=== PATIENT | female | born 1960 | race African-American/Black ===

== ENCOUNTER 2020-12-10 07:33 | Observation (INO) | payer MEDICARE, OTHER ==
[2020-12-09 10:29] LABS: BASOPHILS % (AUTO) 0.7 % (0.0-2.0); EOSINOPHILS % (AUTO) 0.9 % (1.0-6.0); HEMATOCRIT 39.3 % (36-46); HEMOGLOBIN 12.7 g/dL (12.0-16.0); LYMPHOCYTES # (AUTO) 3.2 K/uL (1.0-4.8); MEAN CORPUSCULAR HEMOGLOBIN 25.3 pg (26.0-34.0); MEAN CORPUSCULAR HGB CONC 32.2 G/dL (31.0-37.0); MEAN CORPUSCULAR VOLUME 78 fL (80-100); MONOCYTES # (AUTO) 1.3 K/uL (0.1-1.0); MONOCYTES % (AUTO) 9.5 % (2.0-9.0); NEUTROPHILS # (AUTO) 8.6 K/uL (1.8-7.7); NEUTROPHILS % (AUTO) 64.9 % (40.0-70.0); PLATELET COUNT (AUTO) 387 K/uL (150-450); RED BLOOD CELL COUNT(AUTO) 5.02 MIL/uL (4.00-5.20); RED CELL DISTRIBUTION WIDTH 14.8 % (11.5-14.5)
[2020-12-09 10:30] LABS: COVID AG,FIA SOURCE NASOPHARYNGEAL
[2020-12-09 10:38] LABS: CALCIUM, TOTAL 8.7 mg/dL (8.8-10.5); CREATININE 1.24 mg/dL (0.60-1.30); POTASSIUM 3.9 mmol/L (3.5-5.1)
[2020-12-09 10:42] LABS: PROTHROMBIN TIME 10.4 SEC (9.4-11.6)
[2020-12-09 10:44] LABS: ALBUMIN 3.7 g/dL (3.4-5.0); BILIRUBIN,TOTAL 0.3 mg/dL (0.1-1.0); TOTAL PROTEIN, SERUM 7.6 g/dL (6.4-8.2)
[~2020-12-10] VITALS: Ht 168.9 cm; Wt 135.0 kg
[2020-12-10] VITALS (11 sets, daily range): BP systolic 120–197; BP diastolic 47–95
[~2020-12-10 07:33] MED LIST: ALBU8.5H8 IH; ALBU8HFA IH; ARIP10TA38 PO; ASCO500 PO; ASPI-1450 PO; BACL10TA PO; BETA1TAB15 PO; BIOT5000 PO; CHOL100044 PO; DIPH-1080 PO; FAMO20 PO; GABA-1181 PO; GARL500C2 PO; HYDR50CA9 PO; INSLAN SQ; INSU100V SQ; LIDO1ADH72 TD; LORA10TA7 PO; LOSA-30 PO; METF-960 PO; MULT-1203 PO; NALO25TA4 PO; OMEG-135 PO; OMEP20 PO; OXYC-601 PO; RISP1TAB48 PO; ROSU10TA72 PO; TAPE50TA2 PO; VITA400C73 PO; [UNRECOGNIZED DRUG - OTHER] PO
[2020-12-10] MEDS ORDERED: SODIUM CHLORIDE 0.9% 1,000 ML ONE (07:43)
[2020-12-10] MEDS ORDERED: SODIUM CHLORIDE 0.9% 1,000 ML IV ONE ×2 (08:00→14:00)
[2020-12-10] MEDS ORDERED: SODIUM BICARBONATE 50 MEQ/50 ML VIAL ONE (08:33)
[2020-12-10] MEDS ORDERED: IOHEXOL 300 MG/ML 150 ML VIAL ONE (08:33)
[2020-12-10] MEDS ORDERED: IOHEXOL 300 MG/ML 100 ML VIAL ONE ×2 (08:33→12:05)
[2020-12-10] MEDS ORDERED: LIDOCAINE/PF 1% 30 ML VIAL ONE (08:33)
[2020-12-10] MEDS ORDERED: IOHEXOL 300 MG/ML 50 ML VIAL ONE ×2 (08:33→11:42)
[2020-12-10] MEDS ORDERED: HEPARIN SODIUM 1000 UNITS/NS 1,000 ML ONE (08:34)
[2020-12-10 08:46] LABS: GLUCOMETER DEV NAME(LOC) SDS.; GLUCOSE,POINT OF CARE 142 MG/DL (70-110)
[2020-12-10] MEDS ORDERED: AMLO-257 PO (09:23)
[2020-12-10] MEDS ORDERED: VERAPAMIL HCL 2.5 MG/ML 2 ML VIAL ONE (09:27)
[2020-12-10] MEDS ORDERED: NITROGLYCERIN 50 MG/D5% WATER 250 ML ONE (09:27)
[2020-12-10] MEDS ORDERED: MIDAZOLAM HCL 2 MG/2 ML VIAL ONE ×6 (10:08→12:05)
[2020-12-10] MEDS ORDERED: FentaNYL CITRATE PF 100 MCG/2 ML VIAL ONE ×3 (10:08→11:48)
[2020-12-10] MEDS ORDERED: HEPARIN SODIUM 1000 UNITS/NS 1,000 ML IARTER ONE (11:15)
[2020-12-10] MEDS ORDERED: MIDAZOLAM HCL 2 MG/2 ML VIAL IVP ONE ×5 (11:15→11:45)
[2020-12-10] MEDS ORDERED: IOHEXOL 300 MG/ML 150 ML VIAL IARTER ONE (11:15)
[2020-12-10] MEDS ORDERED: LIDOCAINE 1% 30 ML/SOD BICARB 8.4% 4 ML SQ ONE (11:15)
[2020-12-10] MEDS ORDERED: FentaNYL CITRATE PF 100 MCG/2 ML VIAL IVP ONE ×5 (11:15→11:45)
[2020-12-10] MEDS ORDERED: IOHEXOL 300 MG/ML 100 ML VIAL IARTER ONE (11:45)
[2020-12-10] MEDS ORDERED: ADENOSINE 3 MG/ML 2 ML VIAL ONE (12:03)
[2020-12-10] MEDS ORDERED: ASPIRIN 325 MG TABLET ONE (12:28)
[2020-12-10] MEDS ORDERED: CLOPIDOGREL BISULFATE 300 MG TABLET ONE (12:28)
[2020-12-10] MEDS ORDERED: CLOPIDOGREL BISULFATE 300 MG TABLET PO ONE (13:00)
[2020-12-10] MEDS ORDERED: ASPIRIN 325 MG TABLET PO ONE (13:00)
[2020-12-10] MEDS ORDERED: ACETAMINOPHEN 325 MG TABLET PO PRN (14:00)
[2020-12-10] MEDS: OxyCODONE HCL/ACETAMINOPHEN 5-325 MG TABLET PO PRN (15:56)
[2020-12-10] MEDS ORDERED: BACLOFEN 10 MG TABLET PO PRN (18:00)
[2020-12-10] MEDS ORDERED: DiphenhydrAMINE HCL 25 MG CAPSULE PO PRN (18:00)
[2020-12-10] MEDS: AmLODIPine BESYLATE 5 MG TABLET PO SCH (18:12)
[2020-12-10] MEDS: LOSARTAN POTASSIUM 50 MG TABLET PO SCH (18:12)
[2020-12-10] MEDS: INSULIN LISPRO 100 UNITS/ML SQ PRN (18:13)
[2020-12-10] MEDS ORDERED: DEXTROSE 50%-WATER 25 GM/50 ML SYRINGE IVP PRN (18:15)
[2020-12-10] MEDS: HYDROmorphone 2 MG/ML VIAL IVP PRN (18:26)
[2020-12-10 18:27] LABS: GLUCOSE,POINT OF CARE 164 MG/DL (70-110)
[2020-12-10] MEDS: HYDROCHLOROTHIAZIDE 25 MG TABLET PO SCH (20:39)
[2020-12-10] MEDS: RisperiDONE 1 MG TABLET PO SCH (20:40)
[2020-12-10] MEDS: HydrOXYzine PAMOATE 50 MG CAPSULE PO SCH (20:40)
[2020-12-10] MEDS: ASCORBIC ACID 500 MG TABLET PO SCH (20:40)
[2020-12-10] MEDS ORDERED: ROSUVASTATIN CALCIUM 10 MG TABLET PO SCH (21:00)
[2020-12-10] MEDS ORDERED: FAMOTIDINE 20 MG TABLET PO SCH (21:00)
[2020-12-10] MEDS ORDERED: ARIPiprazole 10 MG TABLET PO SCH (21:00)
[2020-12-11] VITALS: BP 121/59
[2020-12-11] MEDS: HYDROmorphone 2 MG/ML VIAL IVP PRN (00:36)
[2020-12-11 04:00] VITALS: BP 131/71
[2020-12-11 05:27] LABS: BASOPHILS % (AUTO) 0.4 % (0.0-2.0); HEMATOCRIT 36.4 % (36-46); HEMOGLOBIN 11.6 g/dL (12.0-16.0); LYMPHOCYTES # (AUTO) 3.1 K/uL (1.0-4.8); LYMPHOCYTES % (AUTO) 22.4 % (22.0-44.0); MEAN CORPUSCULAR HEMOGLOBIN 25.3 pg (26.0-34.0); MEAN CORPUSCULAR VOLUME 79 fL (80-100); MONOCYTES # (AUTO) 1.2 K/uL (0.1-1.0); MONOCYTES % (AUTO) 8.6 % (2.0-9.0); NEUTROPHILS # (AUTO) 9.1 K/uL (1.8-7.7); NEUTROPHILS % (AUTO) 66.6 % (40.0-70.0); PLATELET COUNT (AUTO) 344 K/uL (150-450); RED BLOOD CELL COUNT(AUTO) 4.61 MIL/uL (4.00-5.20); RED CELL DISTRIBUTION WIDTH 15.2 % (11.5-14.5)
[2020-12-11 05:55] LABS: CALCIUM, TOTAL 8.2 mg/dL (8.8-10.5); CREATININE 1.15 mg/dL (0.60-1.30); POTASSIUM 3.9 mmol/L (3.5-5.1)
[2020-12-11 08:00] VITALS: BP 177/98
[2020-12-11] MEDS ORDERED: ASPIRIN 81 MG CHEWABLE TABLET PO SCH (09:00)
[2020-12-11] MEDS ORDERED: LORATADINE 10 MG TABLET PO SCH (09:00)
[2020-12-11] MEDS ORDERED: ASPIRIN 325 MG TABLET PO SCH (09:00)
[2020-12-11] MEDS ORDERED: CLOPIDOGREL BISULFATE 75 MG TABLET PO SCH (09:00)
[2020-12-11] MEDS: HYDROCHLOROTHIAZIDE 25 MG TABLET PO SCH (09:06)
[2020-12-11] MEDS: HydrOXYzine PAMOATE 50 MG CAPSULE PO SCH (09:06)
[2020-12-11] MEDS: RisperiDONE 1 MG TABLET PO SCH (09:06)
[2020-12-11] MEDS: LOSARTAN POTASSIUM 50 MG TABLET PO SCH (09:06)
[2020-12-11] MEDS: AmLODIPine BESYLATE 5 MG TABLET PO SCH (09:07)
[2020-12-11] MEDS: ASCORBIC ACID 500 MG TABLET PO SCH (09:08)
[2020-12-11 09:37] LABS: GLUCOSE,POINT OF CARE 124 MG/DL (70-110)
[2020-12-11 12:00] VITALS: BP 151/90
[2020-12-11] MEDS: INSULIN LISPRO 100 UNITS/ML SQ PRN (12:10)
[2020-12-11] MEDS: OxyCODONE HCL/ACETAMINOPHEN 5-325 MG TABLET PO PRN (14:08)
[2020-12-11 16:00] VITALS: BP 141/75
[2020-12-11] MEDS ORDERED: CLOP75TA60 PO (17:01)
[2020-12-11 19:49] LABS: GLUCOSE,POINT OF CARE 178 MG/DL (70-110)
== END 2020-12-11 17:45 | disposition home or self-care (01) ==
LOC: CATHLAB 07:33 → INTOOBSV 07:34 → ICU 07:34 → UNDOADMIN 13:30 → ICU 22:00
PROVIDERS: ADMIT Internal Medicine Cardiovascular Disease; ATTEND Internal Medicine Cardiovascular Disease
DX: I25.118 Atherosclerotic heart disease of native coronary artery with other forms of angina pectoris (principal); Z20.822 Contact with and (suspected) exposure to COVID-19; E78.5 Hyperlipidemia, unspecified; I10 Essential (primary) hypertension; J44.9 Chronic obstructive pulmonary disease, unspecified; F11.20 Opioid dependence, uncomplicated; F20.9 Schizophrenia, unspecified; E66.01 Morbid (severe) obesity due to excess calories; E11.9 Type 2 diabetes mellitus without complications; Z72.0 Tobacco use; Z95.5 Presence of coronary angioplasty implant and graft
CPT/HCPCS: 0501T; 36415 ×2; 80048; 80053; 82550; 82962 ×2; 85025 ×2; 85610; 85730; 87081; 87426; 92920; 92928; 93005; 93460; 96361 ×2; 96372 ×2; 96374; 96376; 99219 ×2; C1760; C1874; C1887; C9803; J0153; J1170; J1644; J2250; J3010; J3490 ×4; J7030; Q9967 ×3; Z7610